=== PATIENT | male | born 1965 | race Caucasian/White ===

== ENCOUNTER 2017-04-21 14:34 | Emergency (ER) | payer SELFPAY ==
[~2017-04-21 14:34] MED LIST: LISI-515 PO; OXYC-392 PO; WALKER WHEELS/F1 MIS
[2017-04-21 14:38] VITALS: BP 132/84; PULSE 121; RESP 20; TEMP 98.1; O2SAT 98
[2017-04-21] MEDS ORDERED: AMOXICILLIN/CLAVULANATE K 875 MG TAB PO ONE (14:45)
[2017-04-21] MEDS ORDERED: DIPHTH/TETANUS/ACEL PERTUSSIS (BOOSTER) 0.5 ML VIAL/PFS IM ONE (14:45)
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
[2017-04-21] MEDS ORDERED: LIDOCAINE HCL 1% 50 ML VIAL INFIL ONE (15:00)
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
[2017-04-21] MEDS ORDERED: AUGM875T3 PO (16:26)
[2017-04-21] MEDS ORDERED: IBUP-232 PO (16:26)
[2017-04-21 16:28] VITALS: BP 156/74; PULSE 74; PULSE 99; RESP 18; O2SAT 98
== END 2017-04-21 16:43 | disposition home or self-care (01) ==
LOC: NEPC 14:34
DX: S02.40CA Maxillary fracture, right side, initial encounter for closed fracture (principal); S09.90XA Unspecified injury of head, initial encounter; S01.81XA Laceration without foreign body of other part of head, initial encounter; I10 Essential (primary) hypertension; Z23 Encounter for immunization; Y04.2XXA Assault by strike against or bumped into by another person, initial encounter
CPT/HCPCS: 12014; 70450; 70486; 71010; 72125; 90471; 90715

== ENCOUNTER 2017-05-14 17:00 | Emergency (ER) | payer OTHER ==
[~2017-05-14] VITALS: Ht 167.6 cm; Wt 82.0 kg
[~2017-05-14 17:00] MED LIST changes: +AUGM875T3 PO; +IBUP-232 PO; -WALKER WHEELS/F1 MIS
[2017-05-14 19:08] VITALS: BP 178/107; PULSE 93; RESP 20; TEMP 98; O2SAT 96
[2017-05-14] MEDS ORDERED: LISI-515 PO (20:12)
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
== END 2017-05-14 20:24 | disposition home or self-care (01) ==
LOC: NEDAMB 17:00
DX: F10.20 Alcohol dependence, uncomplicated (principal); I10 Essential (primary) hypertension; M19.90 Unspecified osteoarthritis, unspecified site; Z79.899 Other long term (current) drug therapy
CPT/HCPCS: 99283

== ENCOUNTER 2017-08-20 17:55 | Observation (INO) | payer SELFPAY ==
[~2017-08-20] VITALS: Ht 165.1 cm; Wt 81.5 kg
[2017-08-20 18:03] VITALS: BP 102/65; PULSE 94; RESP 16; TEMP 98.6; O2SAT 99
[2017-08-20] MEDS ORDERED: ASPI-516 CHEW (18:07)
[2017-08-20] MEDS ORDERED: NAPR500 PO (18:07)
[2017-08-20] MEDS ORDERED: SODIUM CHLOR 0.9% 1000 ML INJ 1,000 ML IV SCH (18:33)
[2017-08-20] MEDS ORDERED: ONDANSETRON HCL 4 MG/2 ML VIAL IVP ONE (18:45)
[2017-08-20] MEDS ORDERED: SODIUM CHLORIDE 0.9% FLUSH 10 ML FLUSH IVF PRN (18:45)
[2017-08-20] MEDS ORDERED: PANTOPRAZOLE SODIUM 40 MG VIAL IVP ONE (18:45)
--- NOTE | 2017-08-20 18:47 | PD ---
HPI Chief Complaint: Bleeding Time Seen by Provider: 18:27 Travel History International Travel<30 days: No Contact w/Intl Traveler<30days: No Traveled to known affect area: No History of Present Illness HPI 52-year-old male with PMH of chronic alcoholism presents to the ED via EMS for evaluation of GI bleeding. Patient was seen at the [facility] today. He reports three-day history of frankly bloody stools. He endorses upper abdominal pain, rated 7/10. Cramping in nature. No alleviating or exacerbating factors identified. Patient endorses chills, weakness, SOB, ATKINS. He denies fevers. He has never had a GI bleed before. He's never been evaluated by a exhaust emissions inspector. He is amenable to blood products if needed. States his last drink was last night. Endorses drinking 3+ beers daily. PFSH Past Medical History Arthritis: Yes Heart Rhythm Problems: No Cardiac Catheterization: No High Cholesterol: No Congestive Heart Failure: No Diabetes: No Hypertension: Yes Musculoskeletal: No Neurologic: No Influenza Vaccination: No Past Surgical History Coronary Artery Bypass Graft: No Tonsillectomy: Yes Other Surgery: Yes (adeniodectomy, tubes in ears as child ) Family History Family Myocardial Infarction: Yes (FATHER X2) Social History Alcohol Use: Yes (daily ) Tobacco Use: No Substance Use: Yes (MARIJUANA and cocaine abuse) Allergies-Medications (Allergen,Severity, Reaction): Coded Allergies: No Known Allergies (Verified Adverse Reaction, Unknown, 08/20/17) Reported Meds & Prescriptions Reported Meds & Active Scripts Active Lisinopril 20 Mg Tab 20 Mg PO DAILY Reported Aspirin 81 Mg Chew 81 Mg CHEW DAILY Naprosyn (Naproxen) 500 Mg Tab 500 Mg PO BID Review of Systems Except as stated in HPI: all other systems reviewed are Neg Physical Exam Narrative GENERAL: Well-nourished, well-developed male in no acute distress. SKIN: Focused skin assessment pale and dry. HEAD: Normocephalic. EYES: No scleral icterus. No injection or drainage. NECK: Supple, trachea midline. No JVD or lymphadenopathy. CARDIOVASCULAR: Regular rate and rhythm without murmurs, gallops, or rubs. RESPIRATORY: Breath sounds clear and equal bilaterally. No accessory muscle use. GASTROINTESTINAL: Abdomen soft, non-tender, nondistended. Active bowel sounds. RECTAL EXAM: No masses or tenderness, stool is frankly bloody. MUSCULOSKELETAL: No cyanosis, or edema. BACK: Nontender without obvious deformity. No CVA tenderness. Data Data Last Documented VS Vital Signs Date Time Temp Pulse Resp B/P (MAP) Pulse Ox O2 Delivery O2 Flow Rate FiO2 08/20/17 19:14 90 17 145/79 (101) 99 Room Air 08/20/17 18:03 98.6 Orders Orders Complete Blood Count With Diff (08/20/17 18:33) Comprehensive Metabolic Panel (08/20/17 18:33) Lipase (08/20/17 18:33) Prothrombin Time / Inr (Pt) (08/20/17 18:33) Act Partial Throm Time (Ptt) (08/20/17 18:33) Alcohol (Ethanol) (08/20/17 18:33) Urinalysis - C+S If Indicated (08/20/17 18:33) Type And Screen (08/20/17 18:33) Ecg Monitoring (08/20/17 18:33) Iv Access Insert/Monitor (08/20/17 18:33) Oximetry (08/20/17 18:33) Ondansetron Inj (Zofran Inj) (08/20/17 18:45) Pantoprazole Inj (Protonix Inj) (08/20/17 18:45) Sodium Chlor 0.9% 1000 Ml Inj (Ns 1000 M (08/20/17 18:33) Sodium Chloride 0.9% Flush (Ns Flush) (08/20/17 18:45) Alcohol Withdrawal Asmt-Ciwa ONCE (08/20/17 18:47) Flumazenil Inj (Romazicon Inj) (08/20/17 19:00) Lorazepam (Ativan) (08/20/17 19:00) Lorazepam Inj (Ativan Inj) (08/20/17 19:00) Lorazepam (Ativan) (08/20/17 19:00) Lorazepam Inj (Ativan Inj) (08/20/17 19:00) Lorazepam Inj (Ativan Inj) (08/20/17 19:00) Lorazepam Inj (Ativan Inj) (08/20/17 19:00) Consult Gastroenterology (08/20/17 ) (Hub Use Only)Inp Phy Cons/Ref (08/20/17 ) Admit Order (Ed Use Only) (08/20/17 19:54) Labs Laboratory Tests Test 08/20/17 18:20 08/20/17 18:55 White Blood Count 9.4 TH/MM3 Red Blood Count 3.25 MIL/MM3 Hemoglobin 10.2 GM/DL Hematocrit 29.8 % Mean Corpuscular Volume 91.9 FL Mean Corpuscular Hemoglobin 31.5 PG Mean Corpuscular Hemoglobin Concent 34.2 % Red Cell Distribution Width 14.1 % Platelet Count 243 TH/MM3 Mean Platelet Volume 8.6 FL Neutrophils (%) (Auto) 72.8 % Lymphocytes (%) (Auto) 13.4 % Monocytes (%) (Auto) 12.7 % Eosinophils (%) (Auto) 0.5 % Basophils (%) (Auto) 0.6 % Neutrophils # (Auto) 6.8 TH/MM3 Lymphocytes # (Auto) 1.3 TH/MM3 Monocytes # (Auto) 1.2 TH/MM3 Eosinophils # (Auto) 0.1 TH/MM3 Basophils # (Auto) 0.1 TH/MM3 CBC Comment DIFF FINAL Differential Comment Prothrombin Time 10.2 SEC Prothromb Time International Ratio 1.0 RATIO Activated Partial Thromboplast Time 25.6 SEC Blood Urea Nitrogen 19 MG/DL Creatinine 1.08 MG/DL Random Glucose 85 MG/DL Total Protein 6.3 GM/DL Albumin 3.1 GM/DL Calcium Level 8.9 MG/DL Alkaline Phosphatase 106 U/L Aspartate Amino Transf (AST/SGOT) 33 U/L Alanine Aminotransferase (ALT/SGPT) 20 U/L Total Bilirubin 0.7 MG/DL Sodium Level 135 MEQ/L Potassium Level 4.5 MEQ/L Chloride Level 100 MEQ/L Carbon Dioxide Level 26.9 MEQ/L Anion Gap 8 MEQ/L Estimat Glomerular Filtration Rate 71 ML/MIN Lipase 185 U/L Ethyl Alcohol Level LESS THAN 3 MG/DL Urine Color YELLOW Urine Turbidity HAZY Urine pH 7.0 Urine Specific [place] 1.020 Urine Protein TRACE mg/dL Urine Glucose (UA) NEG mg/dL Urine Ketones 10 mg/dL Urine Occult Blood NEG Urine Nitrite NEG Urine Bilirubin NEG Urine Urobilinogen 2.0 MG/DL Urine Leukocyte Esterase NEG Urine RBC LESS THAN 1 /hpf Urine WBC 1 /hpf Urine Squamous Epithelial Cells <1 /hpf Urine Amorphous Sediment RARE Urine Hyaline Casts 30 /lpf Urine Mucus FEW /lpf Microscopic Urinalysis Comment CULT NOT INDICATED MDM Medical Decision Making Medical Screen Exam Complete: Yes Emergency Medical Condition: Yes Differential Diagnosis GI bleed versus symptomatic anemia versus metabolic derangement versus Narrative Course 53-year-old male with PMH of chronic alcoholism presents to the ED for evaluation of 3 day history of GI bleeding. Patient endorses weakness, ATKINS. Vitals reviewed. Physical exam reveals a nontoxic, pale white male in no acute distress. dolly blood on rectal exam. He's never been seen by a exhaust emissions inspector. IV was established. Patient was placed on CIWA protocol. Patient was administered 1 L normal saline, 40 mg Protonix IV. CBC: WBC 9.4. Hemoglobin 10.2. INR 1.0. CMP: BUN 19, creatinine 1.08. UA: No culture indicated. Alcohol less than 3. I discussed the results of the workup with the patient. I recommended admission for GI intervention. Patient is agreeable to this plan. I spoke with Dr. Benz who agrees to accept the patient to the medicine service. Please see medicine and GI notes for disposition. HemaPrompt Point of Care Internal Pos. & Neg. Controls: Passed Fecal Specimen Occult Blood: Positive Nyasia Natarajan Aug 20, 2017 18:47
[2017-08-20 18:52] LABS: AUTOMATED NEUTROPHIL # 6.8 TH/MM3 (1.8-7.7); BASOPHIL # 0.1 TH/MM3 (0-0.2); BASOPHIL % 0.6 % (0.0-2.0); EOSINOPHIL # 0.1 TH/MM3 (0-0.4); EOSINOPHIL % 0.5 % (0.0-4.0); HEMATOCRIT 29.8 % (39.0-51.0); HEMOGLOBIN 10.2 GM/DL (13.0-17.0); LYMPH % 13.4 % (9.0-44.0); LYMPHOCYTE # 1.3 TH/MM3 (1.0-4.8); MEAN CELL VOLUME 91.9 FL (80.0-100.0); MEAN CORPUSCULAR HEMOGLOBIN 31.5 PG (27.0-34.0); MEAN CORPUSCULAR HGB CONC 34.2 % (32.0-36.0); MEAN PLATELET VOLUME 8.6 FL (7.0-11.0); MONO % 12.7 % (0.0-8.0); MONOCYTE # 1.2 TH/MM3 (0-0.9); NEUT % 72.8 % (16.0-70.0); PLATELET COUNT 243 TH/MM3 (150-450); RED BLOOD COUNT 3.25 MIL/MM3 (4.50-5.90); RED CELL DISTRIBUTION WIDTH 14.1 % (11.6-17.2); WHITE BLOOD COUNT 9.4 TH/MM3 (4.0-11.0)
[2017-08-20] MEDS ORDERED: LORazepam 2 MG TAB PO PRN ×2 (19:00→20:30)
[2017-08-20] MEDS ORDERED: LORazepam 2 MG/ML VIAL IV PUSH PRN ×8 (19:00→20:30)
[2017-08-20] MEDS ORDERED: LORazepam 1 MG TAB PO PRN ×2 (19:00→20:30)
[2017-08-20] MEDS ORDERED: FLUMAZENIL 0.5 MG/5 ML VIAL IV PUSH PRN ×2 (19:00→20:30)
[2017-08-20 19:02] LABS: PROTHROMBIN TIME - PATIENT 10.2 SEC (9.8-11.6)
[2017-08-20 19:12] LABS: AMORPHOUS SEDIMENT, URINE RARE; BILIRUBIN, URINE NEG (NEG); BLOOD, URINE NEG (NEG); GLUCOSE,URINE NEG (NEG); HYALINE CAST, URINE 30 /lpf (RARE); KETONE, URINE 10 mg/dL (NEG); MUCUS URINE FEW /lpf (OCC); NITRITE,URINE NEG (NEG); SQUAMOUS EPITHELIAL CELL URINE <1 /hpf (0-5); URINE COLOR YELLOW (YELLW/STRAW); URINE LEUKOCYTE ESTERASE NEG (NEG)
[2017-08-20 19:14] VITALS: BP 145/79; PULSE 90; RESP 17; O2SAT 99
[2017-08-20 19:22] LABS: ALBUMIN 3.1 GM/DL (3.4-5.0); AST (GOT) 33 U/L (15-37); BICARBONATE 26.9 MEQ/L (21.0-32.0); BLOOD UREA NITROGEN 19 MG/DL (7-18); CALCIUM 8.9 MG/DL (8.5-10.1); CHLORIDE 100 MEQ/L (98-107); CREATININE 1.08 MG/DL (0.60-1.30); GLOMERULAR FILTRATION RATE 71 ML/MIN (>89); GLUCOSE,RANDOM 85 MG/DL (74-106); SODIUM (NA) 135 MEQ/L (136-145)
[2017-08-20 19:23] LABS: ALT (GPT) 20 U/L (12-78)
[2017-08-20 19:25] LABS: ALKALINE PHOSPHATASE 106 U/L (45-117); TOTAL BILIRUBIN ADULT 0.7 MG/DL (0.2-1.0); TOTAL PROTEIN 6.3 GM/DL (6.4-8.2)
[2017-08-20] MEDS ORDERED: IOHEXOL 350 MG/ML 10 ML VIAL (for RAD DIAG) IVCONTRAST ONE (19:56)
--- NOTE | 2017-08-20 20:25 | HHI.HP ---
HPI Service [facility] Primary Care Physician Unknown Admission Diagnosis GI bleed, symptomatic anemia Diagnoses: Travel History International Travel<30 Days: No Contact w/Intl Traveler <30 Da: No Traveled to Known Affected Are: No History of Present Illness 52-year-old male with past medical history significant for alcohol abuse presents to the emergency department for evaluation of bright red blood per rectum. The patient reports he has had abdominal pain for the past 2 weeks. The pain is epigastric and constant which he describes as a squeezing. He was seen in the [facility] where he was given a liquid medication which gave him some relief. He reports that for the past 3 days he has been having approximately 20 episodes of diarrhea per day. He describes the diarrhea as a dark brown stool with maroon streaks and blood clots in it. He denies any nausea/vomiting. Endorses fever/chills that began today. He also endorses associated anorexia for the past 3 days. Today while the patient was riding his bike he noticed exertional fatigue with accompanying shortness of breath and dizziness. He reports he had to lie prevent from passing out. Review of Systems Except as stated in HPI: all other systems reviewed are Neg Past Family Social History Past Medical History Osteoarthritis of right hip Past Surgical History Tonsillectomy Reported Medications Reported Meds & Active Scripts Active Lisinopril 20 Mg Tab 20 Mg PO DAILY Reported Aspirin 81 Mg Chew 81 Mg CHEW DAILY Naprosyn (Naproxen) 500 Mg Tab 500 Mg PO BID Allergies: Coded Allergies: No Known Allergies (Verified Adverse Reaction, Unknown, 08/20/17) Family History Negative for CAD/DM Social History Denies tobacco. Drinks approximately 416 ounce beers per day. Positive marijuana and cocaine. Physical Exam Vital Signs Vital Signs Date Time Temp Pulse Resp B/P (MAP) Pulse Ox O2 Delivery O2 Flow Rate FiO2 08/20/17 19:14 90 17 145/79 (101) 99 Room Air 08/20/17 18:03 98.6 94 16 102/65 (77) 99 Physical Exam GENERAL: male lying in bed SKIN: No rashes, ecchymoses or lesions. Cool and dry. HEAD: Atraumatic. Normocephalic. No temporal or scalp tenderness. EYES: Pupils equal round and reactive. Extraocular motions intact. No scleral icterus. No injection or drainage. ENT: Nose without bleeding, purulent drainage or septal hematoma. Throat without erythema, tonsillar hypertrophy or exudate. Uvula midline. Airway patent. NECK: Trachea midline. No JVD or lymphadenopathy. Supple, nontender, no meningeal signs. CARDIOVASCULAR: Regular rate and rhythm without murmurs, gallops, or rubs. RESPIRATORY: Clear to auscultation. Breath sounds equal bilaterally. No wheezes , rales, or rhonchi. GASTROINTESTINAL: Abdomen soft, tender to palpation in the epigastrium, nondistended. No hepato-splenomegaly, or palpable masses. No guarding. MUSCULOSKELETAL: Extremities without clubbing, cyanosis, or edema. No joint tenderness, effusion, or edema noted. No calf tenderness. NEUROLOGICAL: Awake and alert. Cranial nerves II through XII intact. Motor and sensory grossly within normal limits. Normal speech. Laboratory Laboratory Tests Test 08/20/17 18:20 08/20/17 18:55 White Blood Count 9.4 Red Blood Count 3.25 Hemoglobin 10.2 Hematocrit 29.8 Mean Corpuscular Volume 91.9 Mean Corpuscular Hemoglobin 31.5 Mean Corpuscular Hemoglobin Concent 34.2 Red Cell Distribution Width 14.1 Platelet Count 243 Mean Platelet Volume 8.6 Neutrophils (%) (Auto) 72.8 Lymphocytes (%) (Auto) 13.4 Monocytes (%) (Auto) 12.7 Eosinophils (%) (Auto) 0.5 Basophils (%) (Auto) 0.6 Neutrophils # (Auto) 6.8 Lymphocytes # (Auto) 1.3 Monocytes # (Auto) 1.2 Eosinophils # (Auto) 0.1 Basophils # (Auto) 0.1 CBC Comment DIFF FINAL Differential Comment Prothrombin Time 10.2 Prothromb Time International Ratio 1.0 Activated Partial Thromboplast Time 25.6 Blood Urea Nitrogen 19 Creatinine 1.08 Random Glucose 85 Total Protein 6.3 Albumin 3.1 Calcium Level 8.9 Alkaline Phosphatase 106 Aspartate Amino Transf (AST/SGOT) 33 Alanine Aminotransferase (ALT/SGPT) 20 Total Bilirubin 0.7 Sodium Level 135 Potassium Level 4.5 Chloride Level 100 Carbon Dioxide Level 26.9 Anion Gap 8 Estimat Glomerular Filtration Rate 71 Lipase 185 Ethyl Alcohol Level LESS THAN 3 Urine Color YELLOW Urine Turbidity HAZY Urine pH 7.0 Urine Specific [place] 1.020 Urine Protein TRACE Urine Glucose (UA) NEG Urine Ketones 10 Urine Occult Blood NEG Urine Nitrite NEG Urine Bilirubin NEG Urine Urobilinogen 2.0 Urine Leukocyte Esterase NEG Urine RBC LESS THAN 1 Urine WBC 1 Urine Squamous Epithelial Cells <1 Urine Amorphous Sediment RARE Urine Hyaline Casts 30 Urine Mucus FEW Microscopic Urinalysis Comment CULT NOT INDICATED Result Diagram: 08/20/17181908/20/171819 Caprini VTE Risk Assessment Caprini VTE Risk Assessment: No/Low Risk (score <= 1) Caprini Risk Assessment Model Point Value = 1 Point Value = 2 Point Value = 3 Point Value = 5 Age 41-60 Minor surgery BMI > 25 kg/m2 Swollen legs Varicose veins or History of unexplained or recurrent spontaneous Oral contraceptives or hormone replacement Sepsis (< 1 month) Serious lung disease, including pneumonia (< 1 month) Abnormal pulmonary function Acute myocardial infarction Congestive heart failure (< 1 month) History of inflammatory bowel disease Medical patient at bed rest Age 61-74 Arthroscopic surgery Major open surgery (> 45 min) Laparoscopic surgery (> 45 min) Malignancy Confined to bed (> 72 hours) Immobilizing plaster cast Central venous access Age >= 75 History of VTE Family history of VTE Factor V Leiden Prothrombin [id number] Lupus anticoagulant Anticardiolipin antibodies Elevated serum homocysteine Heparin-induced thrombocytopenia Other congenital or acquired thrombophilia Stroke (< 1 month) Elective arthroplasty Hip, pelvis, or leg fracture Acute spinal cord injury (< 1 month) Prophylaxis Regimen Total Risk Factor Score Risk Level Prophylaxis Regimen 0-1 Low Early ambulation 2 Moderate Order ONE of the following: *Sequential Compression Device (SCD) *Heparin 5000 units SQ BID 3-4 Higher Order ONE of the following medications: *Heparin 5000 units SQ TID *Enoxaparin/Lovenox 40 mg SQ daily (WT < 150 kg, CrCl > 30 mL/min) *Enoxaparin/Lovenox 30 mg SQ daily (WT < 150 kg, CrCl > 10-29 mL/min) *Enoxaparin/Lovenox 30 mg SQ BID (WT < 150 kg, CrCl > 30 mL/min) AND/OR *Sequential Compression Device (SCD) 5 or more Highest Order ONE of the following medications: *Heparin 5000 units SQ TID (Preferred with Epidurals) *Enoxaparin/Lovenox 40 mg SQ daily (WT < 150 kg, CrCl > 30 mL/min) *Enoxaparin/Lovenox 30 mg SQ daily (WT < 150 kg, CrCl > 10-29 mL/min) *Enoxaparin/Lovenox 30 mg SQ BID (WT < 150 kg, CrCl > 30 mL/min) AND *Sequential Compression Device (SCD) Assessment and Plan Assessment and Plan Assessment/plan: 1. GI bleed Serial H&H IV Protonix Transfuse as needed Gastroenterology consulted, appreciate recommendations 2. Alcohol abuse CIWA protocol Monitor for signs of withdrawal FEN NPO Electrolytes: monitor and replete prn Holding pharmacologic anticoagulation for GI bleed Physician Certification 2 Midnight Certification Type: Admission for Inpatient Services Order for Inpatient Services The services are ordered in accordance with Medicare regulations or non- Medicare payer requirements, as applicable. In the case of services not specified as inpatient-only, they are appropriately provided as inpatient services in accordance with the 2-midnight benchmark. Estimated LOS (days): 2 2 days is the estimated time the patient will need to remain in the hospital, assuming treatment plan goals are met and no additional complications. Post-Hospital Plan: Not yet determined Edelmira Benz MD Aug 20, 2017 20:25
[2017-08-20] MEDS ORDERED: NALOXONE HCL 0.4 MG/ML AMP IV PUSH PRN (20:30)
[2017-08-20] MEDS ORDERED: ONDANSETRON HCL 4 MG/2 ML VIAL IVP PRN (20:30)
[2017-08-20] MEDS ORDERED: SODIUM CHLORIDE 0.9% FLUSH 10 ML FLUSH IV FLUSH PRN (20:30)
[2017-08-20] MEDS: SODIUM CHLORIDE 0.9% FLUSH 10 ML FLUSH IV FLUSH SCH (21:00)
[2017-08-20] MEDS: SODIUM CHLOR 0.9% 1000 ML INJ 1,000 ML IV SCH (21:00)
[2017-08-20 21:15] VITALS: BP 131/60; PULSE 69; RESP 20; TEMP 98.3; O2SAT 99
[2017-08-20 22:00] VITALS: PULSE 91
[2017-08-21] VITALS (17 sets, daily range): BP systolic 92–145; BP diastolic 28–78; PULSE 59–86; RESP 16–20; TEMP 97.7–98.7; O2SAT 96–99
[2017-08-21] MEDS: SODIUM CHLOR 0.9% 1000 ML INJ 1,000 ML IV SCH ×2 (05:58→21:06)
[2017-08-21 08:28] LABS: AUTOMATED NEUTROPHIL # 3.9 TH/MM3 (1.8-7.7); BASOPHIL # 0.1 TH/MM3 (0-0.2); BASOPHIL % 0.9 % (0.0-2.0); EOSINOPHIL # 0.1 TH/MM3 (0-0.4); EOSINOPHIL % 1.7 % (0.0-4.0); HEMATOCRIT 25.9 % (39.0-51.0); HEMOGLOBIN 8.8 GM/DL (13.0-17.0); LYMPH % 24.7 % (9.0-44.0); LYMPHOCYTE # 1.6 TH/MM3 (1.0-4.8); MEAN CORPUSCULAR HEMOGLOBIN 31.4 PG (27.0-34.0); MEAN CORPUSCULAR HGB CONC 33.7 % (32.0-36.0); MEAN PLATELET VOLUME 8.6 FL (7.0-11.0); MONO % 13.2 % (0.0-8.0); MONOCYTE # 0.9 TH/MM3 (0-0.9); NEUT % 59.5 % (16.0-70.0); PLATELET COUNT 180 TH/MM3 (150-450); RED BLOOD COUNT 2.79 MIL/MM3 (4.50-5.90); RED CELL DISTRIBUTION WIDTH 14.1 % (11.6-17.2); WHITE BLOOD COUNT 6.5 TH/MM3 (4.0-11.0)
[2017-08-21 08:54] LABS: BICARBONATE 23.1 MEQ/L (21.0-32.0); CALCIUM 7.7 MG/DL (8.5-10.1); CREATININE 0.71 MG/DL (0.60-1.30)
[2017-08-21] MEDS: SODIUM CHLORIDE 0.9% FLUSH 10 ML FLUSH IV FLUSH SCH ×2 (09:00→21:06)
[2017-08-21] MEDS: LISINOPRIL 20 MG TAB PO SCH (09:00)
--- NOTE | 2017-08-21 10:26 | HHI.PR ---
Subjective Remarks bright red blood per rectum this past 4 days associated with lower abdominal discomfort denies any weight loss no NSAiDs use, tajkes ASa history of hemorrhoids in the past now very hungry Objective Vitals Vital Signs Date Time Temp Pulse Resp B/P (MAP) Pulse Ox O2 Delivery O2 Flow Rate FiO2 08/21/17 08:03 98.3 75 16 100/66 (77) 96 08/21/17 08:00 Room Air 08/21/17 04:00 62 08/21/17 04:00 98.0 71 20 92/52 (65) 96 08/21/17 04:00 Room Air 08/21/17 00:00 86 08/21/17 00:00 97.9 69 20 98/54 (69) 96 08/21/17 00:00 Room Air 08/20/17 22:00 91 08/20/17 21:15 08/20/17 21:15 98.3 69 20 131/60 (83) 99 08/20/17 19:14 90 17 145/79 (101) 99 Room Air 08/20/17 18:03 98.6 94 16 102/65 (77) 99 I/O 08/20/17 08/20/17 08/20/17 08/21/17 08/21/17 08/21/17 07:00 15:00 23:00 07:00 15:00 23:00 Intake Total 1000 ml Balance 1000 ml Intake IV Total 1000 ml Result Diagram: 08/21/17 0545 08/21/17 0545 Objective Remarks awake and alert oriented x 3 anicteric neck supple lungs clear regular rhythm abdomen- soft, good bowel sounds, non tender extremities no edema A/P Assessment and Plan 52 years old male Acute Lower GI bleed Acute Anemia from above IV Protonix -give 1 unit RBC H and H repeat after Gastroenterology consulted- will need colonoscopy Alcohol abuse [facility] protocol Monitor for signs of withdrawal History of Hypertension on KAIN. monitor FEN NPO Electrolytes: monitor and replete prn Holding pharmacologic anticoagulation for GI bleed Kristine Torres MD Aug 21, 2017 10:26
[2017-08-21] MEDS ORDERED: PEG (High)/E-LYTE SOLN 4000 ML BTL PO ONE (10:45)
--- NOTE | 2017-08-21 10:46 | PD.CONS ---
HPI History of Present Illness This is a 52 year old male with hx etoh abuse who presented with BRBPR, abd pain. The BRBPR has been intermittent in the last 3 weeks but worse, along with upper quadrant pain in the last 3 days. he denies bleeding independent of stool but frequently feels urge to have BM and it is mostly blood and clots. he admits some dark stools in the past couple days with tarry consistency. he has been taking peptobismol for his abd pain. The pain is not related to eating. He has been having decreased appetite, nausea, and activity intolerance as well in the last 3 days. Denies frequent NSAID use. Until recently was drinking 6 x 16 oz beers daily but is "tapering down." never had EGD or colonoscopy. Takes daily baby ASA. (Pam Duke) PFSH Past Medical History Osteoarthritis of right hip HTN Past Surgical History Tonsillectomy (Pam Duke) Coded Allergies: No Known Allergies (Verified Adverse Reaction, Unknown, 08/20/17) Family History Negative for CAD/DM Social History uses chewing tobacco but is "tapering down". Drinks approximately 6 x16 ounce beers per day but is "tapering down" occasional marijuana per EMR cocaine (Pam Duke) Review of Systems Constitutional: COMPLAINS OF: Fatigue, DENIES: Fever Endocrine: DENIES: Polydipsia Eyes: DENIES: Blurred vision Ears, nose, mouth, throat: DENIES: Vertigo Respiratory: DENIES: Cough Cardiovascular: DENIES: Chest pain Gastrointestinal: COMPLAINS OF: Abdominal pain, Black stools, Bloody stools, Nausea, Anorexia Genitourinary: DENIES: Urinary frequency Musculoskeletal: COMPLAINS OF: Joint pain Integumentary: DENIES: Abnormal pigmentation Hematologic/lymphatic: DENIES: Bruising Immunologic/allergic: DENIES: Eczema Neurologic: DENIES: Abnormal gait Psychiatric: DENIES: Confusion (Pam Duke) GI Exam Vitals I&O Vital Signs Date Time Temp Pulse Resp B/P (MAP) Pulse Ox O2 Delivery O2 Flow Rate FiO2 08/21/17 08:03 98.3 75 16 100/66 (77) 96 08/21/17 08:00 67 08/21/17 08:00 Room Air 08/21/17 04:00 62 08/21/17 04:00 98.0 71 20 92/52 (65) 96 08/21/17 04:00 Room Air 08/21/17 00:00 86 08/21/17 00:00 97.9 69 20 98/54 (69) 96 08/21/17 00:00 Room Air 08/20/17 22:00 91 08/20/17 21:15 08/20/17 21:15 98.3 69 20 131/60 (83) 99 08/20/17 19:14 90 17 145/79 (101) 99 Room Air 08/20/17 18:03 98.6 94 16 102/65 (77) 99 I/O 08/20/17 08/20/17 08/20/17 08/21/17 08/21/17 08/21/17 07:00 15:00 23:00 07:00 15:00 23:00 Intake Total 1000 ml Balance 1000 ml Intake IV Total 1000 ml Laboratory Test 08/20/17 18:20 08/20/17 18:55 08/21/17 05:45 White Blood Count 9.4 TH/MM3 6.5 TH/MM3 Red Blood Count 3.25 MIL/MM3 2.79 MIL/MM3 Hemoglobin 10.2 GM/DL 8.8 GM/DL Hematocrit 29.8 % 25.9 % Mean Corpuscular Volume 91.9 FL 93.0 FL Mean Corpuscular Hemoglobin 31.5 PG 31.4 PG Mean Corpuscular Hemoglobin Concent 34.2 % 33.7 % Red Cell Distribution Width 14.1 % 14.1 % Platelet Count 243 TH/MM3 180 TH/MM3 Mean Platelet Volume 8.6 FL 8.6 FL Neutrophils (%) (Auto) 72.8 % 59.5 % Lymphocytes (%) (Auto) 13.4 % 24.7 % Monocytes (%) (Auto) 12.7 % 13.2 % Eosinophils (%) (Auto) 0.5 % 1.7 % Basophils (%) (Auto) 0.6 % 0.9 % Neutrophils # (Auto) 6.8 TH/MM3 3.9 TH/MM3 Lymphocytes # (Auto) 1.3 TH/MM3 1.6 TH/MM3 Monocytes # (Auto) 1.2 TH/MM3 0.9 TH/MM3 Eosinophils # (Auto) 0.1 TH/MM3 0.1 TH/MM3 Basophils # (Auto) 0.1 TH/MM3 0.1 TH/MM3 CBC Comment DIFF FINAL DIFF FINAL Differential Comment Prothrombin Time 10.2 SEC Prothromb Time International Ratio 1.0 RATIO Activated Partial Thromboplast Time 25.6 SEC Blood Urea Nitrogen 19 MG/DL 16 MG/DL Creatinine 1.08 MG/DL 0.71 MG/DL Random Glucose 85 MG/DL 66 MG/DL Total Protein 6.3 GM/DL Albumin 3.1 GM/DL Calcium Level 8.9 MG/DL 7.7 MG/DL Alkaline Phosphatase 106 U/L Aspartate Amino Transf (AST/SGOT) 33 U/L Alanine Aminotransferase (ALT/SGPT) 20 U/L Total Bilirubin 0.7 MG/DL Sodium Level 135 MEQ/L 138 MEQ/L Potassium Level 4.5 MEQ/L 4.5 MEQ/L Chloride Level 100 MEQ/L 106 MEQ/L Carbon Dioxide Level 26.9 MEQ/L 23.1 MEQ/L Anion Gap 8 MEQ/L 9 MEQ/L Estimat Glomerular Filtration Rate 71 ML/MIN 116 ML/MIN Lipase 185 U/L Ethyl Alcohol Level LESS THAN 3 MG/DL Urine Color YELLOW Urine Turbidity HAZY Urine pH 7.0 Urine Specific [place] 1.020 Urine Protein TRACE mg/dL Urine Glucose (UA) NEG mg/dL Urine Ketones 10 mg/dL Urine Occult Blood NEG Urine Nitrite NEG Urine Bilirubin NEG Urine Urobilinogen 2.0 MG/DL Urine Leukocyte Esterase NEG Urine RBC LESS THAN 1 /hpf Urine WBC 1 /hpf Urine Squamous Epithelial Cells <1 /hpf Urine Amorphous Sediment RARE Urine Hyaline Casts 30 /lpf Urine Mucus FEW /lpf Microscopic Urinalysis Comment CULT NOT INDICATED Physical Examination HEENT: PERRL; normocephalic; atraumatic; no jaundice. CHEST: CTA CARDIAC: RRR ABDOMEN: Soft, upper quadrant TTP; no hepatosplenomegaly; bowel sounds are present in all four quadrants. EXTREMITIES: No clubbing, cyanosis, or edema. SKIN: Normal; no rash; no jaundice. CELEBRITY MANAGER: No focal deficits; alert and oriented times three. (Pam Duke) Assessment and Plan Plan ASSESSMENT - hematochezia, rectal bleeding, abd pain - intermittently last 3 weeks and worse in last few days. admits dark tarry stool as well, has been on pepto bismol. - anemia - normocytic. hgb 10.2 on admission has dropped to 8.8 today. 2/2 above, dilution could also be factor in drop PLAN - EGD and colonoscopy - obtain consent - clear liquids - NPO after MN - goLytely prep - monitor HH - transfuse if needed - further recs to follow depending on results above pt seen by myself and Dr Reynoso and this note is written on his behalf (Pam Duke) Physician Comments Seen and examined with FINANCIAL REPORTING ADVISOR, egd/colonoscopy planned for tomorrow. Thank you (Dari Reynoso MD) Pam Duke Aug 21, 2017 10:46 Dari Reynoso MD Aug 21, 2017 16:51
[2017-08-21 20:44] LABS: HEMATOCRIT 31.2 % (39.0-51.0); HEMOGLOBIN 10.8 GM/DL (13.0-17.0)
[2017-08-21] MEDS: PANTOPRAZOLE SODIUM 40 MG VIAL IV PUSH SCH (21:07)
[2017-08-22] VITALS (9 sets, daily range): BP systolic 103–129; BP diastolic 55–88; PULSE 51–100; RESP 15–21; TEMP 98–98.4; O2SAT 96–98
[2017-08-22] MEDS ORDERED: SODIUM CHLORID 0.9% 500 ML IV PRN (03:45)
[2017-08-22] MEDS ORDERED: CHLORHEXIDINE GLUCONATE 2 % 1 PACK (2 CLOTHS) TOPICAL PRN (03:45)
[2017-08-22] MEDS ORDERED: POVIDONE IODINE 5% (ANTISEPSIS KIT) 4 APPLICATIONS EACH NARE PRN (03:45)
[2017-08-22] MEDS ORDERED: LACTATED RINGER'S 1000 ML IV PRN (03:45)
[2017-08-22 04:07] LABS: HEMATOCRIT 32.4 % (39.0-51.0)
--- NOTE | 2017-08-22 08:12 | EKG ---
Date Performed: 08/22/2017 Time Performed: 03:59:04 PTAGE: 52 years EKG: Sinus bradycardia Normal ECG except for rate PREVIOUS TRACING : 08/28/2015 13.50 Since the prior tracing, there has been no significan t change DOCTOR: Bita Cash Interpretating Date/Time 08/22/2017 08:10:26
[2017-08-22] MEDS: SODIUM CHLORIDE 0.9% FLUSH 10 ML FLUSH IV FLUSH SCH ×2 (08:27→20:46)
[2017-08-22] MEDS: LISINOPRIL 20 MG TAB PO SCH (08:27)
--- NOTE | 2017-08-22 09:14 | HHI.PR ---
Subjective Remarks no abdominal pain, nausea or vomiting stools- brown from prep no reported blood or melena Objective Vitals Vital Signs Date Time Temp Pulse Resp B/P (MAP) Pulse Ox O2 Delivery O2 Flow Rate FiO2 08/22/17 06:00 98.3 57 15 103/62 (76) 97 08/22/17 03:53 58 08/22/17 00:00 98.1 72 16 117/64 (81) 97 08/21/17 23:49 73 08/21/17 20:00 98.2 72 17 101/56 (71) 96 08/21/17 19:30 74 08/21/17 19:00 Room Air 08/21/17 16:15 98.7 61 18 119/74 96 08/21/17 16:03 98.4 59 18 99/70 (80) 99 08/21/17 16:00 67 08/21/17 15:58 98.4 59 18 99/70 99 08/21/17 14:20 97.9 76 18 111/78 (89) 99 08/21/17 13:45 97.8 80 18 145/63 99 08/21/17 13:15 97.7 76 18 111/28 99 08/21/17 12:59 98.6 60 17 104/67 97 08/21/17 12:00 60 17 104/67 (79) 97 I/O 08/21/17 08/21/17 08/21/17 08/22/17 08/22/17 08/22/17 07:00 15:00 23:00 07:00 15:00 23:00 Intake Total 2280 ml 600 ml Output Total 600 ml Balance 1680 ml 600 ml Intake Oral 480 ml 600 ml IV Total 1000 ml Packed Cells 800 ml Output Urine Total 600 ml # Voids 6 # Bowel Movements 2 8 Result Diagram: 08/22/17 0252 08/21/17 0545 Objective Remarks awake and alert oriented x 3 anicteric neck supple lungs clear regular rhythm abdomen- soft, good bowel sounds, non tender extremities no edema A/P Assessment and Plan 52 years old male Acute Lower GI bleed Acute Anemia secondary to above- H and H improved post transfusion 1 unit IV Protonix- change to po - GI ff- for scope this am Alcohol abuse CIWA protocol Monitor for signs of withdrawal History of Hypertension on KAIN. - hold for now. Monitor FEN NPO Electrolytes: monitor and replete prn Holding pharmacologic anticoagulation for GI bleed UP and ambulating Kristine Torres MD Aug 22, 2017 09:14
[2017-08-22] MEDS: SODIUM CHLOR 0.9% 1000 ML INJ 1,000 ML IV SCH ×2 (10:06→13:07)
[2017-08-22] MEDS ORDERED: LIDOCAINE HCL 1% PF 5 ML SYRINGE OTHER ONE (12:00)
[2017-08-22] MEDS ORDERED: PROPOFOL 200 MG/20 ML AMP IV ONE (12:00)
--- NOTE | 2017-08-22 12:19 | GIPROC ---
[facility] [address] [facility], [address] EGD PROCEDURE REPORT EXAM DATE: 08/22/2017 PATIENT NAME: Jose Luis Ruff MR #: [id number] BIRTHDATE: 1965 ATTENDING: Dari Reynoso MD ORDER #: [id number] MONUMENT INSTALLER: Christiana Landon STATUS: inpatient INDICATIONS: The patient is a 52 yr old male here for an EGD due to hematochezia PROCEDURE PERFORMED: EGD w/ biopsy MEDICATIONS: None and Per Anesthesia. TOPICAL ANESTHETIC: CONSENT: The patient understands the risks and benefits of the procedure and understands that these risks include, but are not limited to: sedation, allergic reaction, infection, perforation and/or bleeding. Alternative means of evaluation and treatment include, among others: physical exam, x-rays, and/or surgical intervention. The patient elects to proceed with this endoscopic procedure. medical equipment was checked for proper function. Hand hygiene and appropriate measures for infection prevention was taken. After the risks, benefits and alternatives of the procedure were thoroughly explained, Informed consent was verified, confirmed and timeout was successfully executed by the treatment team. The patient was anesthetized with topical anesthesia and the Pentax [id number] endoscope was introduced through the mouth and advanced to the second portion of the duodenum. Retroflexed views revealed no abnormalities The gastroscope was then slowly withdrawn and removed. ESOPHAGUS: There was LA Class A esophagitis noted. STOMACH: There was mild gastritis in the gastric antrum. Multiple biopsies were performed using cold forceps. Sample sent for histology. DUODENUM: Severe duodenal inflammation was found in the bulb and second portion of the duodenum. ADVERSE EVENTS: There were no complications. IMPRESSIONS: 1. There was LA Class A esophagitis noted 2. There was mild gastritis in the gastric antrum 3. Duodenal inflammation was found in the bulb and second portion of the duodenum 4. Retroflexed views revealed no abnormalities RECOMMENDATIONS: 1. Await biopsy results. Biopsy results will not be ready for 7-10 days. If you don't hear from us in two weeks, call our office for biopsy results. 2. Anti-reflux regimen 3. Continue PPI PATIENT CONDITION: stable DISPOSITION: Inpatient REPEAT EXAM: Return 3 months EGD pending biopsy results Dari Reynoso MD eSigned: Dari Reynoso MD 08/22/2017 12:18 PM cc: PATIENT NAME: Jose Luis Ruff MR#: [id number]
--- NOTE | 2017-08-22 12:21 | GIPROC ---
[facility] [address] [facility]. [facility], [address] COLONOSCOPY PROCEDURE REPORT EXAM DATE: 08/22/2017 PATIENT NAME: Jose Luis Ruff MR #: [id number] BIRTHDATE: 1965 ENDOSCOPIST: Dari Reynoso MD ORDER #: [id number] PRESSER: Christiana Landon STATUS: inpatient INDICATIONS: The patient is a 52 yr old male here for a colonoscopy due to hematochezia PROCEDURE PERFORMED: Colonoscopy, diagnostic MEDICATIONS: None and Per Anesthesia. PREP QUALITY: The [place] Bowel Prep Score was Right colon 1, Mid colon 1, and Left colon 1. Total = 3. PREP TYPE:GoLytely PREP TYPE:Type: ESTIMATED BLOOD LOSS: None CONSENT: The patient understands the risks and benefits of the procedure and understands that these risks include, but are not limited to: sedation, allergic reaction, infection, perforation and/or bleeding. Alternative means of evaluation and treatment include, among others: physical exam, x-rays, and/or surgical intervention. The patient elects to proceed with this endoscopic procedure. medical equipment was checked for proper function. Hand hygiene and appropriate measures for infection prevention was taken. After the risks, benefits and alternatives of the procedure were thoroughly explained, Informed consent was verified, confirmed and timeout was successfully executed by the treatment team. A digital exam revealed external hemorrhoids The Pentax [id number] endoscope was introduced through the anus and advanced to the cecum, which was identified by both the appendix and ileocecal valve. The instrument was then slowly withdrawn as the colon was fully examined. COLON FINDINGS: Moderate diverticulosis was noted in the sigmoid colon. No bleeding was noted from the diverticulosis. Blood present throughout Left colon. No active bleeding source seen. Retroflexed views revealed internal hemorrhoids and Retroflexed views revealed medium internal hemorrhoids The scope was then completely withdrawn from the patient and the procedure terminated. PROCEDURE WITHDRAWAL TIME:7minutes ADVERSE EVENTS: There were no complications. IMPRESSIONS: 1. Moderate diverticulosis was noted in the sigmoid colon 2. Blood present throughout Left colon. No active bleeding source seen 3. Retroflexed views revealed internal hemorrhoids 4. Retroflexed views revealed medium internal hemorrhoids 5. Revealed external hemorrhoids RECOMMENDATIONS: 1. Continue surveillance 2. High fiber diet 3. No seeds, nuts and popcorn in diet RECALL: Return 3 months Colonoscopy Dari Reynoso MD eSigned: Dari Reynoso MD 08/22/2017 12:21 PM cc: PATIENT NAME: Jose Luis Ruff MR#: [id number]
[2017-08-22] MEDS ORDERED: DIATRIZOATE MEGLUM/DIATRIZOATE SOD 9 ML CUP PO ONE (13:45)
[2017-08-22] MEDS: PANTOPRAZOLE SODIUM 40 MG VIAL IV PUSH SCH (20:45)
--- NOTE | 2017-08-22 20:45 | RADRPT ---
EXAM DATE/TIME: 08/22/2017 20:07 [place] COMPARISON: No previous studies available for comparison. INDICATIONS : Abdomen pain Bilateral upper, blood in stool IV CONTRAST: 95 cc Omnipaque 350 (iohexol) IV ORAL CONTRAST: Prescribed oral contrast ingested. RADIATION DOSE: 16.20 CTDIvol (mGy) MEDICAL HISTORY : Hypertension. SURGICAL HISTORY : None. ENCOUNTER: Initial ACUITY: 2 days PAIN SCALE: 2/10 LOCATION: Abdomen TECHNIQUE: Volumetric scanning of the abdomen and pelvis was performed. Using automated exposure control and ad justment of the mA and/or kV according to patient size, radiation dose was kept as low as reasonably achievable to obtain optimal diagnostic quality images. DICOM format image data is available electro nically for review and comparison. FINDINGS: LOWER LUNGS: The visualized lower lungs are clear. LIVER: Homogeneous density without lesion. There is no dilation of the biliary tree. No calcified gallston es. SPLEEN: Normal size without lesion. PANCREAS: Within normal limits. KIDNEYS: Normal in size and shape. There is no mass, stone or hydronephrosis. ADRENAL GLANDS: Within normal limits. VASCULAR: There is no aortic aneurysm. BOWEL/MESENTERY: There is eccentric irregular wall thickening of the distal sigmoid colon. There is moderate diverticu losis in this region and subtle perisigmoid stranding. No associated adenopathy. No free fluid or ursula inable fluid collection. Bowel otherwise appears unremarkable. Appendix is visualized and normal in a ppearance. ABDOMINAL WALL: Within normal limits. RETROPERITONEUM: There is no lymphadenopathy. BLADDER: No wall thickening or mass. REPRODUCTIVE: Within normal limits. INGUINAL: There is no lymphadenopathy or hernia. MUSCULOSKELETAL: Within normal limits for patient age. CONCLUSION: 1. Moderate sigmoid diverticulosis with eccentric irregular wall thickening of the distal sigmoid col on and subtle surrounding inflammatory change. The findings may reflect diverticulitis in the appropr iate clinical setting although an inflammatory mass should be excluded. Reginaldo Kraus MD on August 22, 2017 at 20:40 Board Certified Radiologist. This report was verified electronically.
[2017-08-23] VITALS: BP 139/91; PULSE 73; RESP 18; TEMP 98.2; O2SAT 97
[2017-08-23] MEDS: SODIUM CHLOR 0.9% 1000 ML INJ 1,000 ML IV SCH ×2 (00:24→06:01)
[2017-08-23 04:00] VITALS: BP 107/63; PULSE 60; PULSE 64; RESP 19; TEMP 97.9; O2SAT 98
[2017-08-23] MEDS: SODIUM CHLORIDE 0.9% FLUSH 10 ML FLUSH IV FLUSH SCH (07:29)
--- NOTE | 2017-08-23 07:35 | HHI.GIFU ---
Subjective Remarks Pt resting in bed Denies any abdominal pain, nausea, vomiting Had a BM since colonoscopy yesterday, denies any blood in stool Tolerating full liquid diet and would like to have it advanced to regular food (Xin Sue) Objective Vitals I&O Vital Signs Date Time Temp Pulse Resp B/P (MAP) Pulse Ox O2 Delivery O2 Flow Rate FiO2 08/23/17 04:00 97.9 60 19 107/63 (78) 98 08/23/17 04:00 64 08/23/17 00:00 98.2 73 18 139/91 (107) 97 08/22/17 23:50 68 08/22/17 22:29 73 08/22/17 20:00 98.0 77 21 129/88 (102) 97 08/22/17 19:45 Room Air 08/22/17 16:00 98.2 100 18 119/55 (76) 98 08/22/17 12:40 114/78 (90) 08/22/17 12:30 98.4 69 18 107/67 (80) 98 08/22/17 11:37 51 08/22/17 08:00 Room Air 08/22/17 08:00 98.4 62 18 123/62 (82) 96 I/O 08/22/17 08/22/17 08/22/17 08/23/17 08/23/17 08/23/17 07:00 15:00 23:00 07:00 15:00 23:00 Intake Total 600 ml 500 ml 480 ml 1300 ml Output Total 500 ml 1000 ml Balance 600 ml 500 ml -20 ml 300 ml Intake Oral 600 ml 480 ml 300 ml IV Total 1000 ml Other 500 ml Output Urine Total 500 ml 1000 ml # Voids 6 # Bowel Movements 8 1 0 Imaging Last Impressions Abdomen/Pelvis CT 08/22/17 0000 Signed Impressions: Service Date/Time: August 20:07 - CONCLUSION: 1. Moderate sigmoid diverticulosis with eccentric irregular wall thickening of the distal sigmoid colon and subtle surrounding inflammatory change. The findings may reflect diverticulitis in the appropriate clinical setting although an inflammatory mass should be excluded. Reginaldo Kraus MD Physical Exam HEENT: Normocephalic; atraumatic CHEST: Even/unlabored CARDIAC: RRR ABDOMEN: Soft, nondistended, nontender; bowel sounds active EXTREMITIES: No clubbing, cyanosis, or edema. SKIN: Normal; no rash; no jaundice. BRICK YARD HAND: No focal deficits; alert and oriented times three. (Xin Sue) Assessment and Plan Plan ASSESSMENT - hematochezia, rectal bleeding, abd pain - intermittently last 3 weeks and worse in last few days. admits dark tarry stool as well, has been on pepto bismol. - anemia - normocytic. hgb 10.2 on admission has dropped to 8.8 today. 2/ above, dilution could also be factor in drop\ (08/23) --.> Pt denies any continued episodes of hematochezia, does report having BM since colonoscopy yesterday. Denies abdominal pain, nausea, vomiting. Tolerating full liquid diet, requesting diet to be advanced. CT abdomen and pelvis W IV contrast (08/22) --> Moderate sigmoid diverticulosis with eccentric irregular wall thickening of the distal sigmoid colon and subtle surround inflammatory change. The findings may reflect diverticulitis in the appropriate clinical setting although and inflammatory mass should be excluded. EGD and colonoscopy yesterday --> (EGD) --> Class A esophagitis , mild gastritis in the gastric antrum, duodenal inflammation. Biopsy. (colonoscopy ) --> Moderate diverticulosis in the sigmoid colon, blood present throughout the left colon, no active bleeding source seen, Internal and external hemorrhoids. H/H stable, currently .4 has not been transfused since Aug 21. PLAN - EGD biopsy pending - Protonix - Repeat colonoscopy in 3 months - Monitor H/H - EPHRAIM - GI will sign off, please reconsult as needed - Have pt follow up with GI after discharge Pt has been seen and examined by myself and Dr. Reynoso and this note is written on his behalf (Xin Sue) Physician Comments Seen and examined with ANTONIO, doing well. No bleedign. Biopsies awaited. GI fu upon dc. Thank you (Dari Reynoso MD) Xin Sue Aug 23, 2017 07:35 Dari Reynoso MD Aug 23, 2017 19:15
[2017-08-23 08:00] VITALS: BP 147/92; PULSE 65; RESP 18; TEMP 97.5; O2SAT 98
--- NOTE | 2017-08-23 08:14 | HHI.PR ---
Subjective Remarks feels great no nausea or vomiting + BM/flatus- no blood Objective Vitals Vital Signs Date Time Temp Pulse Resp B/P (MAP) Pulse Ox O2 Delivery O2 Flow Rate FiO2 08/23/17 04:00 97.9 60 19 107/63 (78) 98 08/23/17 04:00 64 08/23/17 00:00 98.2 73 18 139/91 (107) 97 08/22/17 23:50 68 08/22/17 22:29 73 08/22/17 20:00 98.0 77 21 129/88 (102) 97 08/22/17 19:45 Room Air 08/22/17 16:00 98.2 100 18 119/55 (76) 98 08/22/17 12:40 114/78 (90) 08/22/17 12:30 98.4 69 18 107/67 (80) 98 08/22/17 11:37 51 I/O 08/22/17 08/22/17 08/22/17 08/23/17 08/23/17 08/23/17 07:00 15:00 23:00 07:00 15:00 23:00 Intake Total 600 ml 500 ml 480 ml 1300 ml Output Total 500 ml 1000 ml Balance 600 ml 500 ml -20 ml 300 ml Intake Oral 600 ml 480 ml 300 ml IV Total 1000 ml Other 500 ml Output Urine Total 500 ml 1000 ml # Voids 6 # Bowel Movements 8 1 0 Result Diagram: 08/22/17 0252 08/21/17 0545 Imaging Last Impressions Abdomen/Pelvis CT 08/22/17 0000 Signed Impressions: Service Date/Time: August 20:07 - CONCLUSION: 1. Moderate sigmoid diverticulosis with eccentric irregular wall thickening of the distal sigmoid colon and subtle surrounding inflammatory change. The findings may reflect diverticulitis in the appropriate clinical setting although an inflammatory mass should be excluded. Reginaldo Kraus MD Objective Remarks awake and alert oriented x 3 anicteric neck supple lungs clear regular rhythm abdomen- soft, good bowel sounds, non tender, no guarding or rigidity extremities no edema Procedures 08/21- EGD- esophagitis, gastritis colonoscopy- diverticuloses A/P Assessment and Plan 52 years old male Acute Lower GI bleed Acute Anemia secondary to above- H and H improved post transfusion 1 unit S/P EGD/colonoscopy- esophagitis, diverticuloses - po Protonix 40 mg daily -advise ion high fibre diet Alcohol abuse- counselled, - no signs of DTs History of Hypertension on KAIN. -- restart as OP Diet regular HOme today- he ff up closely with [facility] and will call there for ff up FF up with GI in 3 months advise on No Nsaids Kristine Torres MD Aug 23, 2017 08:14
[2017-08-23] MEDS ORDERED: PANT40TA3 PO (08:19)
--- NOTE | 2017-08-23 08:22 | HHI.DS ---
Discharge Summary Admission Date Aug 20, 2017 at 19:55 Discharge Date: Aug 23, 2017 Admitting Diagnosis GI bleed, symptomatic anemia (1) GIB (gastrointestinal bleeding) ICD Code: K92.2 - Gastrointestinal hemorrhage, unspecified Diagnosis: Principal (2) HTN (hypertension) ICD Code: I10 - Essential (primary) hypertension Diagnosis: Secondary Status: Acute Procedures 08/21- EGD- esophagitis, gastritis colonoscopy- diverticuloses Brief History - From Admission 52-year-old male with past medical history significant for alcohol abuse presents to the emergency department for evaluation of bright red blood per rectum. The patient reports he has had abdominal pain for the past 2 weeks. The pain is epigastric and constant which he describes as a squeezing. He was seen in the [facility] where he was given a liquid medication which gave him some relief. He reports that for the past 3 days he has been having approximately 20 episodes of diarrhea per day. He describes the diarrhea as a dark brown stool with maroon streaks and blood clots in it. He denies any nausea/vomiting. Endorses fever/chills that began today. He also endorses associated anorexia for the past 3 days. Today while the patient was riding his bike he noticed exertional fatigue with accompanying shortness of breath and dizziness. He reports he had to lie prevent from passing out. CBC/BMP: 08/22/17 0252 08/21/17 0545 Significant Findings Laboratory Tests Test 08/20/17 18:20 08/20/17 18:55 08/21/17 05:45 08/21/17 20:09 Red Blood Count 3.25 MIL/MM3 (4.50-5.90) 2.79 MIL/MM3 (4.50-5.90) Hemoglobin 10.2 GM/DL (13.0-17.0) 8.8 GM/DL (13.0-17.0) 10.8 GM/DL (13.0-17.0) Hematocrit 29.8 % (39.0-51.0) 25.9 % (39.0-51.0) 31.2 % (39.0-51.0) Neutrophils (%) (Auto) 72.8 % (16.0-70.0) Monocytes (%) (Auto) 12.7 % (0.0-8.0) 13.2 % (0.0-8.0) Monocytes # (Auto) 1.2 TH/MM3 (0-0.9) Blood Urea Nitrogen 19 MG/DL (7-18) Total Protein 6.3 GM/DL (6.4-8.2) Albumin 3.1 GM/DL (3.4-5.0) Sodium Level 135 MEQ/L (136-145) Estimat Glomerular Filtration Rate 71 ML/MIN (>89) Urine Turbidity HAZY (CLEAR) Urine Ketones 10 mg/dL (NEG) Urine Mucus FEW /lpf (OCC) Random Glucose 66 MG/DL (74-106) Calcium Level 7.7 MG/DL (8.5-10.1) Test 08/22/17 02:52 Hemoglobin 11.0 GM/DL (13.0-17.0) Hematocrit 32.4 % (39.0-51.0) Imaging Last Impressions Abdomen/Pelvis CT 08/22/17 0000 Signed Impressions: Service Date/Time: August 20:07 - CONCLUSION: 1. Moderate sigmoid diverticulosis with eccentric irregular wall thickening of the distal sigmoid colon and subtle surrounding inflammatory change. The findings may reflect diverticulitis in the appropriate clinical setting although an inflammatory mass should be excluded. Reginaldo Kraus MD PE at Discharge awake and alert oriented x 3 anicteric neck supple lungs clear regular rhythm abdomen- soft, good bowel sounds, non tender, no guarding or rigidity extremities no edema Pt update on day of discharge no pain complans vital signs stable, up and ambulating no bleeding Hospital Course 52 years old male Acute Lower GI bleed Acute Anemia secondary to above- H and H improved post transfusion 1 unit S/P EGD/colonoscopy- esophagitis, diverticuloses - po Protonix 40 mg daily -advise ion high fibre diet Alcohol abuse- counselled, - no signs of DTs History of Hypertension on KAIN. -- restart as OP Diet regular HOme today- he ff up closely with [facility] and will call there for ff up FF up with GI in 3 months advise on No Nsaids Pt Condition on Discharge: Good Discharge Disposition: Discharge Home Discharge Time: <= 30 minutes Discharge Instructions DIET: Follow Instructions for: Heart Healthy Diet, High Fiber Diet Additional Diet Instructions: please isntruct on high fibre diet Activities you can perform: Weight Bearing as Magan Follow up Referrals: Gastroenterology - 2 Weeks with Dari Reynoso MD PCP Follow-up - 2-3 Days with [facility] New Medications: Pantoprazole (Pantoprazole) 40 Mg Tab 40 MG PO DAILY for GI for 90 Days, #90 TAB Continued Medications: Lisinopril (Lisinopril) 20 Mg Tab 20 MG PO DAILY, #30 TAB 0 Refills Discontinued Medications: Aspirin (Aspirin) 81 Mg Chew 81 MG CHEW DAILY, TAB 0 Refills Naproxen (Naprosyn) 500 Mg Tab 500 MG PO BID, #60 TAB 0 Refills Kristine Torres MD Aug 23, 2017 08:22
[2017-08-23] MEDS ORDERED: PANTOPRAZOLE SOD 40 MG DELAYED RELEASE TAB PO SCH (09:00)
== END 2017-08-23 11:27 | disposition home or self-care (01) ==
LOC: NEPE 17:55 → NEDA 19:55 → INTOOBSV 20:24 → OBSVTOIN 20:24 → N04B 21:07
PROVIDERS: ADMIT Internal Medicine; ATTEND Internal Medicine
DX: K92.2 Gastrointestinal hemorrhage, unspecified (principal); K57.30 Diverticulosis of large intestine without perforation or abscess without bleeding; K20.9 Esophagitis, unspecified; K29.70 Gastritis, unspecified, without bleeding; K64.8 Other hemorrhoids; R53.1 Weakness; R11.0 Nausea; R50.9 Fever, unspecified; R63.0 Anorexia; R53.83 Other fatigue; R06.02 Shortness of breath; R42 Dizziness and giddiness; D64.9 Anemia, unspecified; I10 Essential (primary) hypertension; R00.1 Bradycardia, unspecified; M16.11 Unilateral primary osteoarthritis, right hip; F10.20 Alcohol dependence, uncomplicated; F12.10 Cannabis abuse, uncomplicated; F14.10 Cocaine abuse, uncomplicated; F17.220 Nicotine dependence, chewing tobacco, uncomplicated
CPT/HCPCS: 00813; 36430; 43239; 45378; 74177; 80048; 80053; 80307; 81001; 82948; 83690; 85014; 85018; 85025; 85610; 85730; 86850; 86900; 86901; 86920; 88305; 93005; 96361; 96374; 96375; 96376; 99285; C9113; G0378; J2405; J7030; J7120; P9016; Q9963; Q9967

== ENCOUNTER 2017-11-22 15:22 | Emergency (ER) | payer OTHER ==
[~2017-11-22] VITALS: Ht 165.1 cm; Wt 76.0 kg
[~2017-11-22 15:22] MED LIST changes: -AUGM875T3 PO; -IBUP-232 PO; -OXYC-392 PO; +PANT40TA3 PO
[2017-11-22 16:22] VITALS: BP 101/64; PULSE 98; RESP 16; TEMP 98; O2SAT 96
[2017-11-22 17:18] LABS: AUTOMATED NEUTROPHIL # 10.6 TH/MM3 (1.8-7.7); BASOPHIL # 0.1 TH/MM3 (0-0.2); BASOPHIL % 0.7 % (0.0-2.0); EOSINOPHIL % 0.2 % (0.0-4.0); HEMATOCRIT 39.2 % (39.0-51.0); HEMOGLOBIN 12.9 GM/DL (13.0-17.0); LYMPH % 14.1 % (9.0-44.0); LYMPHOCYTE # 2.1 TH/MM3 (1.0-4.8); MEAN CELL VOLUME 84.7 FL (80.0-100.0); MEAN CORPUSCULAR HEMOGLOBIN 27.9 PG (27.0-34.0); MEAN PLATELET VOLUME 8.1 FL (7.0-11.0); MONO % 12.6 % (0.0-8.0); MONOCYTE # 1.8 TH/MM3 (0-0.9); NEUT % 72.4 % (16.0-70.0); PLATELET COUNT 384 TH/MM3 (150-450); RED BLOOD COUNT 4.63 MIL/MM3 (4.50-5.90); RED CELL DISTRIBUTION WIDTH 16.3 % (11.6-17.2); WHITE BLOOD COUNT 14.6 TH/MM3 (4.0-11.0)
[2017-11-22 17:30] LABS: BACTERIA, URINE MOD /hpf; BILIRUBIN, URINE SMALL (NEG); BLOOD, URINE MOD (NEG); GLUCOSE,URINE NEG (NEG); HYALINE CAST, URINE 58 /lpf (RARE); KETONE, URINE TRACE mg/dL (NEG); NITRITE,URINE NEG (NEG); PH, URINE 5.5 (5.0-8.5); URINE LEUKOCYTE ESTERASE LARGE (NEG); WHITE BLOOD CELL CLUMPS MANY
[2017-11-22 17:40] LABS: URINE COLOR YELLOW (YELLW/STRAW)
[2017-11-22 17:49] LABS: ALBUMIN 3.1 GM/DL (3.4-5.0); AST (GOT) 26 U/L (15-37); BICARBONATE 20.7 MEQ/L (21.0-32.0); BLOOD UREA NITROGEN 9 MG/DL (7-18); CALCIUM 9.4 MG/DL (8.5-10.1); CHLORIDE 96 MEQ/L (98-107); CREATININE 1.02 MG/DL (0.60-1.30); GLOMERULAR FILTRATION RATE 76 ML/MIN (>89); GLUCOSE,RANDOM 85 MG/DL (74-106); SODIUM (NA) 130 MEQ/L (136-145)
[2017-11-22 17:54] LABS: ALKALINE PHOSPHATASE 119 U/L (45-117); ALT (GPT) 14 U/L (12-78); TOTAL BILIRUBIN ADULT 0.6 MG/DL (0.2-1.0); TOTAL PROTEIN 8.4 GM/DL (6.4-8.2)
[2017-11-22] MEDS ORDERED: CIPR-9 PO (19:12)
--- NOTE | 2017-11-22 19:12 | PD ---
HPI Chief Complaint: Complaint Time Seen by Provider: 18:27 Travel History International Travel<30 days: No Contact w/Intl Traveler<30days: No Traveled to known affect area: No History of Present Illness HPI 52-year-old male reports dysuria for several days. Decreased appetite reported. No vomiting. Occasional nausea. He denies fever. No abnormal penile discharge. No mass or skin change around the external genitalia noted. He reports a monogamous relationship with his girlfriend of many years. No similar prior episode. PFSH Past Medical History Arthritis: Yes Heart Rhythm Problems: No Cancer: No Cardiac Catheterization: No Cardiovascular Problems: Yes (HTN) High Cholesterol: No Chest Pain: No Congestive Heart Failure: No Cerebrovascular Accident: No Diabetes: No Endocrine: No GERD: No Genitourinary: No Hiatal Hernia: No Hypertension: Yes Immune Disorder: No Musculoskeletal: Yes Neurologic: No Psychiatric: No Respiratory: No Migraines: No Seizures: No Ulcer: No Past Surgical History Abdominal Surgery: No Cardiac Surgery: No Coronary Artery Bypass Graft: No Ear Surgery: No Endocrine Surgery: No Eye Surgery: No Genitourinary Surgery: No Gynecologic Surgery: No Oral Surgery: No Thoracic Surgery: No Tonsillectomy: Yes Other Surgery: Yes (adeniodectomy, tubes in ears as child ) Social History Alcohol Use: Yes (daily ) Tobacco Use: No Substance Use: Yes (MARIJUANA and cocaine abuse) Allergies-Medications (Allergen,Severity, Reaction): Coded Allergies: No Known Allergies (Verified Adverse Reaction, Unknown, 08/20/17) Reported Meds & Prescriptions Reported Meds & Active Scripts Active Pantoprazole (Pantoprazole Sodium) 40 Mg Tab 40 Mg PO DAILY 90 Days Lisinopril 20 Mg Tab 20 Mg PO DAILY Review of Systems Except as stated in HPI: all other systems reviewed are Neg General / Constitutional: No: Fever Physical Exam Narrative GENERAL: 52 yo male well-nourished well-developed GENITOURINARY: External genitalia appears normal. No urethral discharge. Glans is intact without overlying skin change. No testicular mass. Vital Signs Date Time Temp Pulse Resp B/P (MAP) Pulse Ox O2 Delivery O2 Flow Rate FiO2 11/22/17 16:22 98.0 98 16 101/64 (76) 96 SKIN: Warm and dry. HEAD: Atraumatic. Normocephalic. EYES: Pupils equal and round. No scleral icterus. No injection or drainage. ENT: No nasal bleeding or discharge. Mucous membranes pink and moist. NECK: Trachea midline. No JVD. CARDIOVASCULAR: Regular rate and rhythm. RESPIRATORY: No accessory muscle use. Clear to auscultation. Breath sounds equal bilaterally. GASTROINTESTINAL: Abdomen soft, non-tender, nondistended. Hepatic and splenic margins not palpable. MUSCULOSKELETAL: Extremities without clubbing, cyanosis, or edema. No obvious deformities. NEUROLOGICAL: Awake and alert. No obvious cranial nerve deficits. Motor grossly within normal limits. Five out of 5 muscle strength in the arms and legs. Normal speech. PSYCHIATRIC: Appropriate mood and affect; insight and judgment normal. Data Data Last Documented VS Vital Signs Date Time Temp Pulse Resp B/P (MAP) Pulse Ox O2 Delivery O2 Flow Rate FiO2 11/22/17 16:22 98.0 98 16 101/64 (76) 96 Orders Orders Complete Blood Count With Diff (11/22/17 16:25) Comprehensive Metabolic Panel (11/22/17 16:25) Urinalysis - C+S If Indicated (11/22/17 16:25) Urine Culture (11/22/17 16:40) Labs Laboratory Tests Test 11/22/17 16:30 11/22/17 16:40 White Blood Count 14.6 TH/MM3 Red Blood Count 4.63 MIL/MM3 Hemoglobin 12.9 GM/DL Hematocrit 39.2 % Mean Corpuscular Volume 84.7 FL Mean Corpuscular Hemoglobin 27.9 PG Mean Corpuscular Hemoglobin Concent 33.0 % Red Cell Distribution Width 16.3 % Platelet Count 384 TH/MM3 Mean Platelet Volume 8.1 FL Neutrophils (%) (Auto) 72.4 % Lymphocytes (%) (Auto) 14.1 % Monocytes (%) (Auto) 12.6 % Eosinophils (%) (Auto) 0.2 % Basophils (%) (Auto) 0.7 % Neutrophils # (Auto) 10.6 TH/MM3 Lymphocytes # (Auto) 2.1 TH/MM3 Monocytes # (Auto) 1.8 TH/MM3 Eosinophils # (Auto) 0.0 TH/MM3 Basophils # (Auto) 0.1 TH/MM3 CBC Comment DIFF FINAL Differential Comment Blood Urea Nitrogen 9 MG/DL Creatinine 1.02 MG/DL Random Glucose 85 MG/DL Total Protein 8.4 GM/DL Albumin 3.1 GM/DL Calcium Level 9.4 MG/DL Alkaline Phosphatase 119 U/L Aspartate Amino Transf (AST/SGOT) 26 U/L Alanine Aminotransferase (ALT/SGPT) 14 U/L Total Bilirubin 0.6 MG/DL Sodium Level 130 MEQ/L Potassium Level 4.4 MEQ/L Chloride Level 96 MEQ/L Carbon Dioxide Level 20.7 MEQ/L Anion Gap 13 MEQ/L Estimat Glomerular Filtration Rate 76 ML/MIN Urine Color YELLOW Urine Turbidity CLOUDY Urine pH 5.5 Urine Specific [place] 1.020 Urine Protein 100 mg/dL Urine Glucose (UA) NEG mg/dL Urine Ketones TRACE mg/dL Urine Occult Blood MOD Urine Nitrite NEG Urine Bilirubin SMALL Urine Urobilinogen 4.0 MG/DL Urine Leukocyte Esterase LARGE Urine WBC /hpf Urine WBC Clumps MANY Urine Bacteria MOD /hpf Urine Hyaline Casts 58 /lpf Microscopic Urinalysis Comment CULTURE INDICATED MDM Medical Decision Making Medical Screen Exam Complete: Yes Emergency Medical Condition: Yes Medical Record Reviewed: Yes Differential Diagnosis UTI, pyelonephritis, STD Narrative Course CBC & BMP Diagram 11/22/17 16:30 Total Protein 8.4 H, Albumin 3.1 L, Calcium Level 9.4, Alkaline Phosphatase 119 H, Aspartate Amino Transf (AST/SGOT) 26, Alanine Aminotransferase (ALT/SGPT) 14 , Total Bilirubin 0.6 Urinalysis shows UTI The patient will receive first dose of Cipro tonight and a prescription for Cipro to go. Rocephin given here as well. Diagnosis Primary Impression: UTI (urinary tract infection) Qualified Codes: N39.0 - Urinary tract infection, site not specified Referrals: Primary Care Physician call for appointment Med/Other Pt SpecificInfo: Prescription(s) given Scripts Ciprofloxacin (Cipro) 500 Mg Tab 500 MG PO BID for Infection for 7 Days, #14 TAB 0 Refills Prov: Peter Nj MD 11/22/17 Disposition: 01 DISCHARGE HOME Condition: Stable Peter Nj MD November 22, 2017 19:12
[2017-11-22] MEDS ORDERED: CIPROFLOXACIN 500 MG TAB PO ONE (19:15)
[2017-11-22] MEDS ORDERED: LIDOCAINE HCL 1% 50 ML VIAL IM ONE (19:15)
[2017-11-22] MEDS ORDERED: LISI-515 PO (20:05)
[2017-11-22] MEDS ORDERED: LIDOCAINE HCL 1% 20 ML VIAL ONE (20:10)
[2017-11-22] MEDS ORDERED: LIDOCAINE HCL 1% PF 30 ML VIAL ONE (20:12)
== END 2017-11-22 20:30 | disposition home or self-care (01) ==
LOC: NEPD 15:22
DX: N39.0 Urinary tract infection, site not specified (principal); F14.10 Cocaine abuse, uncomplicated; F12.10 Cannabis abuse, uncomplicated; I10 Essential (primary) hypertension
CPT/HCPCS: 80053; 81001; 85025; 87077; 87086; 87186; 96372; 99283; J0696